=== PATIENT | female | born 1985 | race Caucasian/White ===

== ENCOUNTER 2017-06-11 20:11 | Emergency (ER) | payer BC ==
[2017-06-11 20:30] VITALS: BP 124/74
--- NOTE | 2017-06-11 20:32 | PHYS DOC ---
Past History Past Medical History: No Pertinent History Adult General Chief Complaint Chief Complaint: INSECT BITE HPI HPI Patient is a 31 year old female who presents with multiple hornet stings. She does not have a severe allergy that she is aware of. She has at least 3-4 stings on her extremities. No wheezing; no facial swelling; No shortness of air. No significant swelling of extremities. Review of Systems Review of Systems HENT: Denies nasal congestion or sore throat Respiratory: Denies cough or shortness of breath Cardiovascular: No chest pain Integument: Denies rash; localized stings Physical Exam Physical Exam Constitutional: Well developed, well nourished, no acute distress, non-toxic appearance. HENT: Normocephalic, atraumatic, bilateral external ears normal, oropharynx moist, no oral exudates, nose normal. No drooling; no uvula or tongue edema. No facial edema. Eyes: PERRLA, EOMI, conjunctiva normal, no discharge. Neck: Normal range of motion, no tenderness, supple, no stridor. Cardiovascular:Heart rate regular rhythm, no murmur Lungs & Thorax: Bilateral breath sounds clear to auscultation; no wheezing Skin: Warm, dry, no erythema, no rash. Multiple localized stings on extremities. Max is 5 cm of swelling and redness. Extremities: No tenderness, no cyanosis, no clubbing, ROM intact, no edema. No evidence of compartment syndrome. No retained stingers or FB noted. Neurologic: Alert and oriented X 3, normal motor function, normal sensory function, no focal deficits noted. Psychologic: Affect normal, judgement normal, mood normal. Current Patient Data Vital Signs Vital Signs Date Time Temp Pulse Resp B/P (MAP) Pulse Ox O2 Delivery O2 Flow Rate FiO2 06/11/17 20:11 98.5 87 18 98 Room Air Course & Med Decision Making Course & Med Decision Making Evaluated patient upon arrival. No respiratory compromise. No difficulty swallowing or stridor. oxygen saturation normal on room air. Pepcid and benadryl dosed here. Her reaction is localized. Rx for medrol dose brent written and if stings worsen she needs to start it otherwise use hydrocortisone cream on the areas. Dragon Disclaimer Dragon Disclaimer This chart was dictated in whole or in part using Voice Recognition software in a busy, high-work load, and often noisy Emergency Department environment. It may contain unintended and wholly unrecognized errors or omissions. Departure Departure: Impression: Primary Impression: Sting, hornet Disposition: 01 HOME, SELF-CARE Condition: GOOD Referrals: MARGE AGUILERA APRN (PCP) Patient Instructions: Bee, Wasp, or Hornet Sting Additional Instructions: YOU WERE GIVEN PEPCID AND BENADRYL HERE. CONTINUE THE PEPCID 20 MG TWICE DAILY UNTIL THE STINGS START TO RESOLVE. THE BENADRYL YOU CAN TAKE AT NIGHT IF IT MAKES YOU TOO SLEEPY. YOU WERE GIVEN A MEDROL DOSE BRENT PRESCRIPTION. IF THE STINGS WORSEN START THE PACK IN THE AM. IF THEY ARE RESOLVING THEN YOU CAN HOLD THE STEROID PILLS. USE A STEROID CREAM (HYDROCORTISONE) ON THE STINGS AND THAT WILL HELP THEM RESOLVE. Scripts Methylprednisolone (MEDROL) 4 Mg Tab.ds.pk 1 PKG PO UD, #1 PKG Prov: ALEXI GALLOWAY MD 06/11/17 Famotidine (PEPCID) 20 Mg Tablet 1 TAB PO BID, #30 TAB 3 Refills Prov: ALEXI GALLOWAY MD 06/11/17 Problem Qualifiers Primary Impression: Sting, hornet Encounter type: initial encounter Injury intent: accidental or unintentional Qualified Codes: T63.451A - Toxic effect of venom of hornets, accidental (unintentional), initial encounter ALEXI GALLOWAY MD Jun 11, 2017 20:31
[2017-06-11] MEDS ORDERED: METH4TAB2 PO (20:36)
[2017-06-11] MEDS ORDERED: FAMO-63 PO (20:36)
[2017-06-11] MEDS: diphenhydrAMINE HCL 25 MG CAPSULE PO ONE (20:37)
[2017-06-11] MEDS: FAMOTIDINE 20 MG TABLET PO ONE (20:37)
== END 2017-06-11 20:38 | disposition home or self-care (01) ==
LOC: ER 20:11
DX: T63.451A Toxic effect of venom of hornets, accidental (unintentional), initial encounter (principal); Y92.89 Other specified places as the place of occurrence of the external cause
CPT/HCPCS: 99283; Q0163

== ENCOUNTER 2017-07-06 12:19 | Emergency (ER) | payer BC ==
[~2017-07-06 12:19] MED LIST: FAMO-63 PO; METH4TAB2 PO
[2017-07-06] MEDS ORDERED: 0.9 % SODIUM CHLORIDE 10 ML DISP.SYRIN. IV PRN (12:30)
--- NOTE | 2017-07-06 12:41 | PHYS DOC ---
Past History Past Medical History: GERD Additional Past Medical Histor: gastritis Past Surgical History: No Surgical History Smoking: Non-smoker Alcohol Use: None Drug Use: None Adult General Chief Complaint Chief Complaint: nausea and vomiting with vaginal bleeding while [facility] This is a pleasant 31 yo female who is a who is and believes she is about 5 weeks along based on her last menstrual period presents with nausea and vomiting that began at 6 AM this morning. She's developed crampy abdominal pain that began after the nausea and vomiting she recalls 10- 12 episodes of nonbilious nonbloody emesis with no diarrhea. She has crampy abdominal pain that does not radiate to the back she has no diarrhea, no UTI symptoms and only slight vaginal bleeding when she changed her pad. She denies any vaginal discharge denies any trauma. Denies history structures transmitted diseases. She has what she describes a subjective chills without fevers. 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 She denies any travel outside the country, denies any recent antibiotic use or other complaints. Patient has undergone multiple treatments of IUI and IVF in an attempt to get . Review of Systems Review of Systems Constitutional: He has had subjective chills with diaphoresis but no fevers. Eyes: Denies change in visual acuity, redness, or eye pain [] HENT: Denies nasal congestion or sore throat [] Respiratory: Denies cough or shortness of breath [] Cardiovascular: No additional information not addressed in [facility] [] GI: He is having diffuse crampy abdominal pain with nausea and vomiting no bloody stools or diarrhea. : Denies dysuria or hematuria [] Musculoskeletal: Denies back pain or joint pain [] Integument: Denies rash or skin lesions [] Neurologic: Denies headache, focal weakness or sensory changes [] Endocrine: Denies polyuria or polydipsia [] Current Medications Current Medications Current Medications Medications (Trade) Dose Ordered Sig/Francisca Start Time Stop Time Status Last Admin Dose Admin Ondansetron HCl (Zofran) 4 mg 1X ONCE 07/06/17 12:30 07/06/17 12:31 UNV Sodium Chloride 500 ml @ 500 mls/hr Q1H 07/06/17 12:30 UNV Sodium Chloride (Normal Saline Flush) 10 ml QSHIFT PRN 07/06/17 12:30 UNV Allergies Allergies Allergies Coded Allergies Type Severity Reaction Last Updated Verified No Known Drug Allergies 06/11/17 No Physical Exam Physical Exam Vital signs documented demonstrated hypertensive at 163/105 with a heart rate of 82. Saturation rate of 96% on room air. RR 16 Constitutional: Well developed, well nourished, she is obviously uncomfortable HENT: Normocephalic, atraumatic, bilateral external ears normal, oropharynx moist, no oral exudates, nose normal. [] Eyes: PERRLA, EOMI, conjunctiva normal, no discharge. [] Neck: Normal range of motion, no tenderness, supple, no stridor. [] Cardiovascular:Heart rate regular rhythm, no murmur [] Lungs & Thorax: Bilateral breath sounds clear to auscultation [] Abdomen: Bowel sounds normal, soft, no tenderness, no masses, no pulsatile masses. [] Skin: Warm, dry, no erythema, no rash. [] Back: No tenderness, no CVA tenderness. [] Extremities: No tenderness, no cyanosis, no clubbing, ROM intact, no edema. [] Neurologic: Alert and oriented X 3, normal motor function, normal sensory function, no focal deficits noted. [] Psychologic: Affect normal, judgement normal, mood normal. [] Current Patient Data Lab Results Laboratory Tests Test 07/06/17 12:33 White Blood Count 18.9 x10^3/uL (4.0-11.0) H Red Blood Count 5.05 x10^6/uL (3.50-5.40) Hemoglobin 15.5 g/dL (12.0-15.5) Hematocrit 45.2 % (36.0-47.0) Mean Corpuscular Volume 90 fL (79-100) Mean Corpuscular Hemoglobin 31 pg (25-35) Mean Corpuscular Hemoglobin Concent 34 g/dL (31-37) Red Cell Distribution Width 12.8 % (11.5-14.5) Platelet Count 201 x10^3/uL (140-400) Neutrophils (%) (Auto) 91 % (31-73) H Lymphocytes (%) (Auto) 6 % (24-48) L Monocytes (%) (Auto) 3 % (0-9) Eosinophils (%) (Auto) 0 % (0-3) Basophils (%) (Auto) 0 % (0-3) Neutrophils # (Auto) 17.2 x10^3uL (1.8-7.7) H Lymphocytes # (Auto) 1.1 x10^3/uL (1.0-4.8) Monocytes # (Auto) 0.6 x10^3/uL (0.0-1.1) Eosinophils # (Auto) 0.0 x10^3/uL (0.0-0.7) Basophils # (Auto) 0.0 x10^3/uL (0.0-0.2) Segmented Neutrophils % 87 % (35-66) H Lymphocytes % 9 % (24-48) L Monocytes % 4 % (0-10) Platelet Estimate Adequate (ADEQUATE) Maternal Serum HCG Beta Subunit 107 mIU/mL (0-6) H Sodium Level 139 mmol/L (136-145) Potassium Level 3.8 mmol/L (3.5-5.1) Chloride Level 103 mmol/L (98-107) Carbon Dioxide Level 26 mmol/L (21-32) Anion Gap 10 (6-14) Blood Urea Nitrogen 10 mg/dL (7-20) Creatinine 0.9 mg/dL (0.6-1.0) Estimated GFR (Cockcroft-Gault) 73.5 Glucose Level 127 mg/dL (70-99) H Calcium Level 8.7 mg/dL (8.5-10.1) Lipase 91 U/L (73-393) EKG EKG [] Radiology/Procedures Radiology/Procedures [] IMAGING REPORT Signed PATIENT: UNA SAMAYOA ACCOUNT: [id number] : 1985 LOCATION: ER AGE: 31 SEX: F EXAM STATUS: REG ER ORD. PHYSICIAN: YULIYA HELTON MD REASON: vaginal bleeding with ab pain in early preg PROCEDURE: OB <14 WKS W/TV Obstetrical ultrasound, 07/06/2017: History: Epigastric pain, cramping and spotting Transabdominal and transvaginal scans were obtained. The central uterine echo complex is somewhat poorly defined. It measures approximately 9 mm in AP dimension. No intrauterine gestational sac is seen. The ovaries are of normal size. There is a cluster of small cysts in the right ovary. No adnexal mass is seen. A small amount of free fluid is present in the cul-de-sac. IMPRESSION: 1. No evidence of an intrauterine or extrauterine gestational sac. Diagnostic considerations include a very early intrauterine , a recent spontaneous or an occult ectopic . Correlation with serial hCG titers and/or sonographic follow-up is suggested. 2. Small amount of free fluid in the cul-de-sac. This amount of fluid can be on a physiologic basis. DICTATED AND SIGNED BY: VANESA THAKUR MD DATE: 07/06/17 141 CC: YULIYA HELTON MD; MARGE AGUILERA APRN ~ Course & Med Decision Making Course & Med Decision Making Pertinent Labs and Imaging studies reviewed. (See chart for details) []Patient tells me that their symptoms given during CC are improved. We reviewed labs which did demonstrate an elevated white blood cell count of 18.9 with left shift likely secondary from the stress of nausea and vomiting. Her BUN /creatinine are normal at 10.9 which is good as well as her electrolytes. Patient's bicarbonate was normal his although she's had intractable nausea and vomiting she is been doing a great job hydrating. Patient tells me that their symptoms given during CC are now returned time is now to 2:11 PM we will re-dose with a different medication Phenergan IV. We reviewed labs and it did demonstrate patient was A- and will rhogam as of her mild spotting and this is her second . Patient's nausea is still persisted patient's exam demonstrated mild cervical bleeding with clots in the vaginal vault. This cervix was closed and long is no adnexal fullness or tenderness no bladder tenderness. [place] Ms. been administered. Patient is still having intractable nausea and vomiting sonogram would avoid after 2 L of fluid. I will attempt to transfer this patient to [facility] where her ORTHOTIC AND PROSTHETIC TECHNICIAN is available. Time of transfer call was approximately 3:20 PM spoke with triage nurse discussed vital signs, laboratory work, our plan and her reason for transfer. At this point patient is still not voided at 3:40 PM. Patient's Quant is 107 ultrasound demonstrated no clear IUP minimal free fluid no adnexal masses. Transfer team finally called back at approximately 4:10 PM I spoke with Dr. Rubio who is a partner of her primary ORTHOTIC AND PROSTHETIC TECHNICIAN who agreed that she needs to be admitted to the hospital and they be happy see her unfortunately labor and delivery will not see anybody less than 12 weeks and for sexual activity with the emergency department he said that in urinary or emergency transfer was not really required at her stage given her lack of bleeding is stable H&H are stable vital signs I agreed with this assessment and told to the family when I talked to him about this plan we will give her another dose of Phenergan here she'll have her IV discharged given her discharge instructions given her ultrasound on a disc as well as laboratory work and she will follow up directly with the ER [facility] and follow-up with labor and delivery after she is seen in the emergency department. Family and patient are quite happy with this plan and were leaving here to go there. Dragon Disclaimer Dragon Disclaimer This chart was dictated in whole or in part using Voice Recognition software in a busy, high-work load, and often noisy Emergency Department environment. It may contain unintended and wholly unrecognized errors or omissions. Departure Departure: Impression: Primary Impression: Intractable nausea and vomiting Additional Impression: Threatened miscarriage Disposition: 01 HOME, SELF-CARE Condition: IMPROVED Referrals: MARGE AGUILERA APRN (PCP) Patient Instructions: Nausea and Vomiting, RhoGAM, Threatened Miscarriage Additional Instructions: Please follow-up with emergency medicine department after discharge here. This is not a formal transfer of care as in the ORTHOTIC AND PROSTHETIC TECHNICIAN bleeds you are okay to be discharged from our facility and transferred by POV to the ER there and to be seen in labor and delivery once properly assessed in the ER. Since her okay with that please return if you have any questions or concerns, increasing symptoms especially localized abdominal pain in the abdomen. Increased bleeding greater than 1 pad per hour for 8 hours or he felt lightheaded dizziness with her symptoms. Scripts Promethazine Hcl (PROMETHAZINE HCL) 25 Mg Tablet 1 TAB PO PRN Q6HRS, #20 TAB Prov: YULIYA HELTON MD 07/06/17 Problem Qualifiers YULIYA HELTON MD Jul 06, 2017 12:41
[2017-07-06] MEDS ORDERED: ONDANSETRON PF 4 MG/2 ML VIAL. IV ONE (12:45)
[2017-07-06] MEDS ORDERED: IV NORMAL SALINE 500ML 500 ML IV SCH (12:45)
[2017-07-06 12:59] LABS: BASO % 0 % (0-3); EOS % 0 % (0-3); HEMATOCRIT 45.2 % (36.0-47.0); HEMOGLOBIN 15.5 g/dL (12.0-15.5); LYMPH # 1.1 x10^3/uL (1.0-4.8); LYMPH % 6 % (24-48); MEAN CORPUSCULAR HEMOGLOBIN 31 pg (25-35); MEAN CORPUSCULAR HGB CONC 34 g/dL (31-37); MEAN CORPUSCULAR VOLUME 90 fL (79-100); MONO # 0.6 x10^3/uL (0.0-1.1); MONO % 3 % (0-9); NEUT # 17.2 x10^3uL (1.8-7.7); NEUT % 91 % (31-73); PLATELET COUNT 201 x10^3/uL (140-400); RED BLOOD COUNT 5.05 x10^6/uL (3.50-5.40); RED CELL DISTRIBUTION WIDTH 12.8 % (11.5-14.5); WHITE BLOOD COUNT 18.9 x10^3/uL (4.0-11.0)
[2017-07-06 13:01] LABS: CALCIUM 8.7 mg/dL (8.5-10.1); CREATININE 0.9 mg/dL (0.6-1.0); GFR 73.5; POTASSIUM 3.8 mmol/L (3.5-5.1)
[2017-07-06 14:13] LABS: % LYMPHS 9 % (24-48); % MONOS 4 % (0-10); % SEGS 87 % (35-66); PLT ESTIMATE ADEQUATE (ADEQUATE)
[2017-07-06] MEDS ORDERED: RINGERS LACTATED IV ONE (14:15)
--- NOTE | 2017-07-06 14:17 | RAD ---
Obstetrical ultrasound, 07/06/2017: History: Epigastric pain, cramping and spotting Transabdominal and transvaginal scans were obtained. The central uterine echo complex is somewhat poorly defined. It measures approximately 9 mm in AP dimension. No intrauterine gestational sac is seen. The ovaries are of normal size. There is a cluster of small cysts in the right ovary. No adnexal mass is seen. A small amount of free fluid is present in the cul-de-sac. IMPRESSION: 1. No evidence of an intrauterine or extrauterine gestational sac. Diagnostic considerations include a very early intrauterine , a recent spontaneous or an occult ectopic . Correlation with serial hCG titers and/or sonographic follow-up is suggested. 2. Small amount of free fluid in the cul-de-sac. This amount of fluid can be on a physiologic basis.
[2017-07-06] MEDS ORDERED: IV RINGERS SOLUTION,LACTATED 1,000 ML IV ONE (14:21)
[2017-07-06] MEDS ORDERED: PROMETHAZINE 12.5 MG in IV NORMAL SALINE 50ML 50 ML IV PRN (14:30)
[2017-07-06] MEDS ORDERED: PROM25TA10 PO (16:14)
[2017-07-06] MEDS ORDERED: PROMETHAZINE 12.5 MG in IV NORMAL SALINE 50ML 50 ML IV ONE (16:30)
[2017-07-06 18:12] VITALS: BP 126/71
== END 2017-07-06 17:25 | disposition home or self-care (01) ==
LOC: ER 12:19
DX: O20.0 Threatened abortion (principal); O21.9 Vomiting of pregnancy, unspecified; K21.9 Gastro-esophageal reflux disease without esophagitis
CPT/HCPCS: 36415; 76801; 76817; 80048; 83690; 84702; 85007; 85025; 86850; 86900; 86901; 96361; 96365; 96366; 96375; 99285; J2405; J2550; J2791; J7040; J7120

== ENCOUNTER 2018-04-06 20:47 | Emergency (ER) | payer BC ==
[2018-04-06 20:47] VITALS: BP 131/73
[~2018-04-06 20:47] MED LIST changes: +PROM25TA10 PO
--- NOTE | 2018-04-06 20:53 | ED.ADGEN ---
Past History Past Medical History: GERD Additional Past Medical Histor: gastritis Past Surgical History: No Surgical History Smoking: Non-smoker Alcohol Use: None Drug Use: None Adult General Chief Complaint Chief Complaint ".. I was picking up stuff .. in the yard.. and chemo stabbed my self with a stick... " ( Lt. leg laceration- 10 cm) [facility] HPI Patient is a 32 year old female who presents with above hx and complaints of 10 cm laceration to Lt. calf. Pt. has good hemostasis. Laceration is through the skin to the adipose tissue. She neurovascular intact. Patient did not remember her last tetanus vaccination. No recent travel. No history immunosuppression. No specific ill contacts. Patient normally follows with a primary. Review of Systems Review of Systems Constitutional: Denies fever or chills [] Eyes: Denies change in visual acuity, redness, or eye pain [] HENT: Denies nasal congestion or sore throat [] Respiratory: Denies cough or shortness of breath [] Cardiovascular: No additional information not addressed in HPI [] GI: Denies abdominal pain, nausea, vomiting, bloody stools or diarrhea [] : Denies dysuria or hematuria [] Musculoskeletal: Denies back pain or joint pain [] Integument: Denies rash or skin lesions [] Complaints of laceration. Neurologic: Denies headache, focal weakness or sensory changes [] Endocrine: Denies polyuria or polydipsia [] All other systems were reviewed and found to be within normal limits, except as documented in this note. Family History Family History Non-contributory Current Medications Current Medications Current Medications Medications (Trade) Dose Ordered Sig/Francisca Start Time Stop Time Status Last Admin Dose Admin Bupivacaine HCl (Sensorcaine Mpf 0.5%) 30 ml 1X ONCE 04/06/18 21:30 04/06/18 21:31 DC 04/06/18 21:30 30 ML Bupivacaine HCl (Sensorcaine Pf 0.75%) 10 ml STK-MED ONCE 04/06/18 21:08 04/06/18 21:09 DC Lidocaine HCl 20 ml 1X ONCE 04/06/18 21:30 04/06/18 21:31 DC 04/06/18 21:30 20 ML Tetanus/ Diphtheria Toxoids Adsorbed (Tenivac Vial) 0.5 ml ONCE ONCE 04/06/18 21:30 04/06/18 21:31 DC 04/06/18 21:43 0.5 ML See Nursing for home meds Allergies Allergies Allergies Coded Allergies Type Severity Reaction Last Updated Verified No Known Drug Allergies 06/11/17 No Physical Exam Physical Exam Constitutional: Well developed, well nourished, no acute distress, non-toxic appearance. [] HENT: Normocephalic, atraumatic, bilateral external ears normal, oropharynx moist, no oral exudates, nose normal. [] Eyes: PERRLA, EOMI, conjunctiva normal, no discharge. [] Neck: Normal range of motion, no tenderness, supple, no stridor. [] Cardiovascular:Heart rate regular rhythm, no murmur [] Lungs & Thorax: Bilateral breath sounds clear to auscultation [] Abdomen: Bowel sounds normal, soft, no tenderness, no masses, no pulsatile masses. [] Skin: Warm, dry, no erythema, no rash. [] 10 cm laceration as per HPI Lt. calf. Back: No tenderness, no CVA tenderness. [] Extremities: No tenderness, no cyanosis, no clubbing, ROM intact, no edema. [] Neurologic: Alert and oriented X 3, normal motor function, normal sensory function, no focal deficits noted. [] Psychologic: Affect normal, judgement normal, mood normal. [] EKG EKG [] Radiology/Procedures Radiology/Procedures [] Course & Med Decision Making Course & Med Decision Making Pertinent Labs and Imaging studies reviewed. (See chart for details) Procedure Note:- Laceration repair. - Laceration washed with surgical soap. Irrigated with normal saline in range of motion. Close laceration with 10 aiden. Polysporin and dressing apply. Keep laceration, clean and dry. Polysporin 4 x day. Aiden removed in 10 days. Monitor for infection. Return if any concerns. Follow up with primary. [] Final Impression Final Impression 1. Laceration[] Lt. calf. - 10 cm Dragon Disclaimer Dragon Disclaimer This electronic medical record was generated, in whole or in part, using a voice recognition dictation system. ALISON MERRILL MD April 06, 2018 20:53
[2018-04-06] MEDS ORDERED: BUPIVACAINE PF 0.75% 10 ML VIAL ONE (21:08)
[2018-04-06] MEDS ORDERED: LIDOCAINE 2% 20 ML VIAL. IJ ONE (21:30)
[2018-04-06] MEDS ORDERED: TETANUS AND DIPHTHERIA TOX/PF 0.5 ML VIAL. VAX IM ONE (21:30)
[2018-04-06] MEDS ORDERED: BUPIVACAINE MPF 0.5% 30 ML VIAL. SQ ONE (21:30)
== END 2018-04-06 21:49 | disposition home or self-care (01) ==
LOC: ER 20:47
DX: S81.812A Laceration without foreign body, left lower leg, initial encounter (principal); K21.9 Gastro-esophageal reflux disease without esophagitis; W45.8XXA Other foreign body or object entering through skin, initial encounter; Y93.89 Activity, other specified; Y92.096 Garden or yard of other non-institutional residence as the place of occurrence of the external cause; Y99.8 Other external cause status
CPT/HCPCS: 12004; 90471; 90714; 99283; J3490; J2001

== ENCOUNTER 2018-04-16 16:07 | Emergency (ER) | payer BC ==
[~2018-04-16] VITALS: Ht 170.2 cm; Wt 73.8 kg
[2018-04-16 16:16] VITALS: BP 111/57
--- NOTE | 2018-04-16 16:53 | PHYS DOC ---
Past History Past Medical History: GERD, Hyperthyroid Additional Past Medical Histor: gastritis Past Surgical History: No Surgical History Smoking: Non-smoker Alcohol Use: None Drug Use: None Adult General Chief Complaint Chief Complaint: SUTURE/STAPLE REMOVAL [facility] 32-year-old female presents for multiple sarah in her left lower extremity. She has had no difficulty with it. She has not had any bleeding. She denies fever or chills. He has no other complaints Review of Systems Review of Systems Constitutional: Denies fever or chills [] Eyes: Denies change in visual acuity, redness, or eye pain [] HENT: Denies nasal congestion or sore throat [] Respiratory: Denies cough or shortness of breath [] Cardiovascular: No additional information not addressed in HPI [] GI: Denies abdominal pain, nausea, vomiting, bloody stools or diarrhea [] : Denies dysuria or hematuria [] Musculoskeletal: Denies back pain or joint pain [] Integument: Ducor and left lower leg[] Neurologic: Denies headache, focal weakness or sensory changes [] Endocrine: Denies polyuria or polydipsia [] All other systems were reviewed and found to be within normal limits, except as documented in this note. Allergies Allergies Allergies Coded Allergies Type Severity Reaction Last Updated Verified No Known Drug Allergies 06/11/17 No Physical Exam Physical Exam Constitutional: Well developed, well nourished, no acute distress, non-toxic appearance. [] HENT: Normocephalic, atraumatic, bilateral external ears normal, oropharynx moist, no oral exudates, nose normal. [] Eyes: PERRLA, EOMI, conjunctiva normal, no discharge. [] Neck: Normal range of motion, no tenderness, supple, no stridor. [] Cardiovascular:Heart rate regular rhythm, no murmur [] Lungs & Thorax: Bilateral breath sounds clear to auscultation [] Abdomen: Bowel sounds normal, soft, no tenderness, no masses, no pulsatile masses. [] Skin: Warm, dry, no erythema, no rash. [] Back: No tenderness, no CVA tenderness. [] Extremities: Ingrid some left lower extremity, no surrounding erythema or signs of infection. They are ready to be removed.[] Neurologic: Alert and oriented X 3, normal motor function, normal sensory function, no focal deficits noted. [] Psychologic: Affect normal, judgement normal, mood normal. [] Current Patient Data Vital Signs Vital Signs Date Time Temp Pulse Resp B/P (MAP) Pulse Ox O2 Delivery O2 Flow Rate FiO2 04/16/18 16:16 98.1 72 18 97 Room Air EKG EKG [] Radiology/Procedures Radiology/Procedures [] Course & Med Decision Making Course & Med Decision Making Pertinent Labs and Imaging studies reviewed. (See chart for details) Patient's sarah look ready to be removed. The skin appears to be well-healed. There is no signs of infection. One of the techs removed the sarah without complication. [] Dragon Disclaimer Dragon Disclaimer This electronic medical record was generated, in whole or in part, using a voice recognition dictation system. Departure Departure: Referrals: MARGE AGUILERA APRN (PCP) SHRUTHI LINK DO April 16, 2018 16:53
== END 2018-04-16 17:21 | disposition home or self-care (01) ==
LOC: ER 16:07
DX: S81.812D Laceration without foreign body, left lower leg, subsequent encounter (principal); E05.90 Thyrotoxicosis, unspecified without thyrotoxic crisis or storm; K21.9 Gastro-esophageal reflux disease without esophagitis; X58.XXXD Exposure to other specified factors, subsequent encounter
CPT/HCPCS: 99281

== ENCOUNTER 2021-12-20 12:31 | Emergency (ER) | payer BC, OTHER ==
[~2021-12-20] VITALS: Ht 154.9 cm; Wt 79.3 kg
[2021-12-20 12:35] VITALS: BP 129/81
[2021-12-20] MEDS ORDERED: LIDOCAINE 1% Multi-Dose 20 ML VIAL. IJ ONE (13:00)
--- NOTE | 2021-12-20 13:48 | PHYS DOC ---
Past History Past Medical History: GERD, Hyperthyroid Additional Past Medical Histor: gastritis (MICHAEL MARCH APRN) Past Surgical History: Other Additional Past Surgical Histo: WISDOM TEETH, D&C X 2 (MICHAEL MARCH APRN) Smoking: Non-smoker Alcohol Use: None Drug Use: None (MICHAEL MARCH APRN) General Adult EDM: Chief Complaint: LACERATION/AVULSION HPI: HPI: Patient is a 36-year-old female who presents to the emergency department for a laceration to her right hand that occurred just prior to ER arrival. Patient reports that she was cutting things with scissors at work at [employer] today and she accidentally cut the webbing of her right hand. Patient has up-to-date tetanus. She is denying any pain. (MICHAEL MARCH APRN) Review of Systems: Review of Systems: Constitutional: negative unless reported in HPI Eyes: negative unless reported in HPI HENT: negative unless reported in HPI Respiratory: negative unless reported in HPI Cardiovascular: negative unless reported in HPI GI: negative unless reported in HPI : negative unless reported in HPI Musculoskeletal: negative unless reported in HPI Integument: negative unless reported in HPI Neurologic: negative unless reported in HPI Endocrine: negative unless reported in HPI Lymphatic: negative unless reported in HPI Psychiatric: negative unless reported in HPI (MICHAEL MARCH APRN) Current Medications: Current Meds: Current Medications Medications (Trade) Dose Ordered Sig/Francisca Start Time Stop Time Status Last Admin Dose Admin Lidocaine HCl 20 ml 1X ONCE 12/20/21 13:00 12/20/21 13:01 DC 12/20/21 13:06 20 ML (MICHAEL MARCH APRN) Allergies: Allergies: Allergies Coded Allergies Type Severity Reaction Last Updated Verified No Known Drug Allergies 06/11/17 No (MICHAEL MARCH APRN) Physical Exam: PE: Constitutional: Well developed, well nourished, no acute distress, non-toxic appearance. [] HENT: Normocephalic, atraumatic, bilateral external ears normal, oropharynx moist, no oral exudates, nose normal. [] Eyes: PERRL, EOMI, conjunctiva normal, no discharge. [] Neck: Normal range of motion, no stridor Cardiovascular: Normal peripheral perfusion Lungs & Thorax: Normal work of breathing, no tachypnea Abdomen: Soft and flat Skin: Warm, dry, no erythema, no rash, 1 cm laceration noted to dorsal aspect of right hand in the webbing, active bleeding noted, no foreign bodies, no tendon involvement, range of motion intact, neuro intact. [] Back: Normal range of motion Extremities: No tenderness, no cyanosis, no clubbing, ROM intact, no edema. [] Neurologic: Alert and oriented X 3, normal motor function, normal sensory function, no focal deficits noted. [] Psychologic: Affect normal, judgement normal, mood normal. [] (MICHAEL MARCH APRN) Current Patient Data: Vital Signs: Vital Signs Date Time Temp Pulse Resp B/P (MAP) Pulse Ox O2 Delivery O2 Flow Rate FiO2 12/20/21 12:35 99.0 79 20 129/81 (97) 98 Room Air (MICHAEL MARCH APRN) EKG: EKG: [] (MICHAEL MARCH APRN) Radiology/Procedures: Radiology/Procedures: [] (MICHAEL MARCH APRN) Heart Score: C/O Chest Pain: N/A Risk Factors: Risk Factors: DM, Current or recent (<one month) smoker, HTN, HLP, family history of CAD, obesity. Risk Scores: Score 0 - 3: 2.5% MACE over next 6 weeks - Discharge Home Score 4 - 6: 20.3% MACE over next 6 weeks - Admit for Clinical Observation Score 7 - 10: 72.7% MACE over next 6 weeks - Early Invasive Strategies (MICHAEL MARCH APRN) Course & Med Decision Making: Course & Med Decision Making Pertinent Labs and Imaging studies reviewed. (See chart for details) [] Patient presents to the emergency department for a laceration to her right hand. This was cleansed with saline wound wash and laceration repair was performed with sutures. Patient states that her tetanus is up-to-date. Patient educated on wound care and suture removal. I discussed with patient all findings as well as the need to follow-up with PCP for further evaluation and treatment or return to the ER if any new or worsening symptoms. Strict return precautions were also discussed at length. Patient voiced understanding and agreement with the plan. Patient is hemodynamically stable at the time of disposition. (MICHAEL MARCH APRN) Dragon Disclaimer: Dragon Disclaimer: This electronic medical record was generated, in whole or in part, using a voice recognition dictation system. (MICHAEL MARCH APRN) Laceration Repair Lac Repair Time:1310 Confirmed: Patient, procedure, site, and site correct Consent: Patient has given verbal consent Laceration location: Dorsal aspect of right hand proximal to the webbing of thumb and index finger Shape: Linear Depth: Subcutaneous tissue involvement Details: Clean with no foreign material Neurovascular, tendon exam: Intact Anesthesia: 1% lidocaine Preparation: Sterile field established Irrigation: Wound irrigated with sterile saline wound wash Skin closure: Simple interrupted sutures placed Size of suture: 5-0 Ethilon Number of sutures: 4 Complexity: Single layer Post procedure exam: Circulation, motor, sensory exam intact, bleeding controlled. Complications: None Patient tolerated: Well Performed by: self Total time: 25 minutes (MICHAEL MARCH APRN) Departure Departure: Impression: Primary Impression: Laceration Disposition: HOME / SELF CARE / HOMELESS Condition: GOOD Referrals: MANJEET BRISCOE (PCP) Patient Instructions: Laceration Care, Adult Additional Instructions: You were seen in the emergency department today for a laceration to your hand which was repaired with stitches. Please keep this clean and dry. You can cover with bacitracin or Polysporin ointment and keep a bandage in place. You can wash the laceration site with warm water and mild soap. You can take Tylenol and ibuprofen for any pain at home. You will need to return to your [facility] care provider's office or return to the emergency department in 7 to 10 days to have your stitches removed. Monitor for any signs of infection which include redness, warmth, swelling or drainage. If you develop any of the signs of infection, decreased range of motion, decreased sensation in your hand please return to the ER immediately. Attending Signature Attending Signature I have reviewed the PA/BUSINESS INTERN's note and plan of care. I was available for consultation as needed during the patient's visit in the emergency department. I agree with the clinical impression, plan, and disposition. (PATT ZAPIEN DO) MICHAEL MARCH APRN Dec 20, 2021 13:48 PATT ZAPIEN DO Dec 20, 2021 21:40
== END 2021-12-20 13:58 | disposition home or self-care (01) ==
LOC: ER 12:31
DX: S61.411A Laceration without foreign body of right hand, initial encounter (principal); K21.9 Gastro-esophageal reflux disease without esophagitis; Y28.8XXA Contact with other sharp object, undetermined intent, initial encounter; Y93.89 Activity, other specified; Y92.89 Other specified places as the place of occurrence of the external cause; Y99.8 Other external cause status
CPT/HCPCS: 12001; 99282

== ENCOUNTER 2021-12-29 16:52 | Emergency (ER) | payer OTHER ==
[~2021-12-29] VITALS: Ht 154.9 cm; Wt 77.3 kg
[2021-12-29 17:00] VITALS: BP 140/82
--- NOTE | 2021-12-29 17:25 | PHYS DOC ---
Past History Past Medical History: GERD, Hyperthyroid Additional Past Medical Histor: gastritis (YARELISSTEPHAN Navin MEMBERSHIP COORDINATOR) Past Surgical History: Other Additional Past Surgical Histo: WISDOM TEETH, D&C X 2 (MARCERodríguezSTEPHAN Navin MEMBERSHIP COORDINATOR) Smoking: Non-smoker Alcohol Use: None Drug Use: None (YARELISSTEPHAN Navin MEMBERSHIP COORDINATOR) Adult General Chief Complaint Chief Complaint: SUTURE/STAPLE REMOVAL HPI HPI Patient is a 36-year-old female patient presenting to the ED today for suture removal from the right hand, sutures have been in since December 20, 2021, patient denies any issues with the wound healing (MARCERodríguezSTEPHAN Navin MEMBERSHIP COORDINATOR) Review of Systems Review of Systems Constitutional: Denies fever or chills [] Integument: Present for suture removal Neurologic: Denies headache, focal weakness or sensory changes [] All other systems were reviewed and found to be within normal limits, except as documented in this note. (STEPHAN SANTOYO Navin MEMBERSHIP COORDINATOR) Allergies Allergies Allergies Coded Allergies Type Severity Reaction Last Updated Verified No Known Drug Allergies 06/11/17 No (YARELISSTEPHAN Navin MEMBERSHIP COORDINATOR) Physical Exam Physical Exam Constitutional: Well developed, well nourished, no acute distress, non-toxic appearance. [] Skin: Webspace between the right thumb and right index finger with a well approximated laceration site with approximately 3 interrupted sutures, no signs of infection. Back: No tenderness, no CVA tenderness. [] Extremities: No tenderness, no cyanosis, no clubbing, ROM intact, no edema. [] Neurologic: Alert and oriented X 3, normal motor function, normal sensory function, no focal deficits noted. [] Psychologic: Affect normal, judgement normal, mood normal. [] (MARCERodríguezSTEPHAN Navin MEMBERSHIP COORDINATOR) Current Patient Data Vital Signs Vital Signs Date Time Temp Pulse Resp B/P (MAP) Pulse Ox O2 Delivery O2 Flow Rate FiO2 12/29/21 17:00 97.9 54 16 140/82 (101) 97 (YARELISSTEPHAN Navin MEMBERSHIP COORDINATOR) EKG EKG [] (STEPHAN SANTOYO MEMBERSHIP COORDINATOR) Radiology/Procedures Radiology/Procedures [] (MATTHEWRAQUELSTEPHAN Arreguin MEMBERSHIP COORDINATOR) Heart Score C/O Chest Pain: N/A Risk Factors: Risk Factors: DM, Current or recent (<one month) smoker, HTN, HLP, family history of CAD, obesity. Risk Scores: Risk Factors: DM, Current or recent (<one month) smoker, HTN, HLP, family hist ory of CAD, obesity. (STEPHAN SANTOYO APRN) Course & Med Decision Making Course & Med Decision Making Pertinent Labs and Imaging studies reviewed. (See chart for details) Sutures were removed from patient's right hand, she was discharged to home. Return precautions provided. (STEPHAN SANTOYO APRN) Course & Med Decision Making I was the Attending physician on the above date of service of this patient. This patient was evaluated, examined, treated, and dispositioned from the emergency department by the mid-level practitioner. Although I was working at the time , no assistance was requested. Electronically signed, Valarie Harrison DO (VALARIE HARRISON DO) Amelia Disclaimer Draglauren Disclaimer This electronic medical record was generated, in whole or in part, using a voice recognition dictation system. (STEPHAN SANTOYO APRN) Departure Departure: Impression: Primary Impression: Visit for suture removal Disposition: HOME / SELF CARE / HOMELESS Condition: STABLE Referrals: MANJEET BRISCOE (PCP) Please follow up with your primary care doctor as needed Patient Instructions: Suture Removal Additional Instructions: You had stitches removed from your hand. Apply Neosporin to the area twice a day for 7 days. Follow-up with your doctor in 1 week as needed. STEPHAN SANTOYO APRN Dec 29, 2021 17:25 VALARIE HARRISON DO Jan 01, 2022 08:23
== END 2021-12-29 17:31 | disposition home or self-care (01) ==
LOC: ER 16:52
DX: S61.210D Laceration without foreign body of right index finger without damage to nail, subsequent encounter (principal); K21.9 Gastro-esophageal reflux disease without esophagitis; E03.9 Hypothyroidism, unspecified; X58.XXXD Exposure to other specified factors, subsequent encounter
CPT/HCPCS: 99282